=== PATIENT | male | born 1995 | race African-American/Black ===

== ENCOUNTER 2018-12-20 15:48 | Emergency (ER) | payer SELFPAY ==
[2018-12-20 15:57] VITALS: BP 117/55
--- NOTE | 2018-12-20 16:40 | ED Physician Documentation ---
PD HPI SKIN - Stated complaint Stated Complaint: RT DE LEON R - Chief complaint Chief Complaint: General - History obtained from History obtained from: Patient - History of Present Illness Timing - onset: How many months ago (4) Timing - duration: Months (4) Timing - details: Gradual onset, Still present, Waxing and waning Location: RUE Quality / character: Itchy, Burning Associated symptoms: No: Fever, Myalgias, Joint pain, Headache, Facial swelling, Dyspnea, Abd pain, N/V/D, Urinary sx Contributing factors: Unknown Similar symptoms before: Has not had sx before Recently seen: Not recently seen - Additional information Additional information: 23-year-old male has developed a dry patch of skin on the dorsum of the right hand laterally over the ulnar surface and this is been persistent for about 4 months. He states that he will occasionally itching a little bit and burn at times but he is really not had that much in way of symptoms or. He does state that he got a little bit worse when he had a bad cold. He does have a sister who has a history of eczema. Review of Systems Constitutional: denies: Fever, Chills Eyes: denies: Decreased vision Ears: denies: Ear pain Nose: denies: Congestion Throat: denies: Sore throat Respiratory: denies: Cough GI: denies: Vomiting : denies: Dysuria Skin: reports: Rash Musculoskeletal: denies: Neck pain, Back pain, Extremity pain Neurologic: denies: Generalized weakness, Focal weakness, Numbness PD PAST MEDICAL HISTORY - Past Medical History Past Medical History: No - Past Surgical History Past Surgical History: No - Present Medications Home Medications: Ambulatory Orders Medication Instructions Recorded Confirmed Albuterol Sulf [Ventolin Hfa 1 - 2 puffs INH Q4HR PRN 12/20/18 12/20/18 Inhaler] Triamcinolone 0.1% Cream [Kenalog 1 applic TOP BID #15 gm 12/20/18 0.1% Cream] - Allergies Allergies/Adverse Reactions: Allergies Allergy/AdvReac Type Severity Reaction Status Date / Time No Known Drug Allergies Allergy Verified 12/20/18 15:57 - Social History Does the pt smoke?: No Smoking Status: Never smoker Does the pt drink ETOH?: Yes Does the pt have substance abuse?: No - Immunizations Immunizations are current?: Yes - POLST Patient has POLST: No PD ED PE NORMAL - Vitals Vital signs reviewed: Yes (normal ) - General General: Alert and oriented X 3, No acute distress, Well developed/nourished - HEENT HEENT: Atraumatic, PERRL, EOMI - Respiratory Respiratory: No respiratory distress - Derm Derm: Normal color, Warm and dry, Other (There is dry lichenified skin over the ulnar surface of the right dorsal hand. There are 2 other small patches of similar skin one on the dorsum of the right hand and one on the webspace of the left hand over the 2nd interspace. ) - Neuro Neuro: Alert and oriented X 3, welfare interviewer 2-12 intact, No motor deficit, No sensory deficit, Normal speech Eye Opening: Spontaneous Motor: Obeys Commands Verbal: Oriented GCS Score: 15 - Psych Psych: Normal mood, Normal affect Results - Vitals Vitals: Vital Signs - 24 hr 12/20/18 15:55 Temperature 37.5 C Heart Rate 75 Respiratory 18 Rate Blood Pressure 117/55 L O2 Saturation 100 Oxygen O2 Source Room air PD MEDICAL DECISION MAKING - ED course Complexity details: considered differential, d/w patient ED course: 23-year-old male with some eczema to his hand does not appear to be overly bothered by this I have offered treatment with topical steroid. Departure - Departure Disposition: 01 Home, Self Care Clinical Impression: Eczema Qualifiers: Eczema type: unspecified Qualified Code(s): L30.9 - Dermatitis, unspecified Condition: Stable Instructions: ED Dermatitis Atopic Eczema Follow-Up: [facility] [Provider Group] Prescriptions: Triamcinolone 0.1% Cream [Kenalog 0.1% Cream] 1 applic TOP BID #15 gm
== END 2018-12-20 16:52 | disposition home or self-care (01) ==
LOC: ED 15:48
DX: L30.9 Dermatitis, unspecified (principal)
CPT/HCPCS: 99283

== ENCOUNTER 2019-01-10 10:06 | Emergency (ER) | payer MEDICAID ==
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
[2019-01-10 12:39] VITALS: BP 114/65
== END 2019-01-10 12:50 | disposition home or self-care (01) ==
LOC: ED 10:06
DX: S02.2XXA Fracture of nasal bones, initial encounter for closed fracture (principal); S60.511A Abrasion of right hand, initial encounter; Y04.2XXA Assault by strike against or bumped into by another person, initial encounter; M54.2 Cervicalgia; L30.9 Dermatitis, unspecified
CPT/HCPCS: 70486; 72125; 99283

== ENCOUNTER 2021-03-03 22:15 | Emergency (ER) | payer SELFPAY ==
--- NOTE | 2021-03-03 22:29 | ED Physician Documentation ---
PD HPI URI - Stated complaint Stated Complaint: THROAT PX - Chief complaint Chief Complaint: Heent - History obtained from History obtained from: Patient - History of Present Illness Timing - onset: How many days ago Timing duration: Days (few) Timing details: Gradual onset, Still present (increased pain left lower molar radiating to throat and neck. Worsening.) Associated symptoms: Sore throat, Other (left lower dental pain with some gum swelling.). No: Fever, Chills, Nasal congestion, Swollen nodes, Dry cough Contributing factors: No: Sick contact, Travel Recently seen: Not recently seen (He had antibiotics left from prior dental infection, so started those today without improvement.) Review of Systems Constitutional: reports: Myalgias. denies: Fever, Chills Nose: denies: Rhinorrhea / runny nose, Congestion Throat: reports: Dental pain / toothache, Sore throat (just to left side.). denies: Oral lesions / sores, Swollen tonsils PD PAST MEDICAL HISTORY - Past Medical History Cardiovascular: None Respiratory: None Endocrine/Autoimmune: None - Past Surgical History Past Surgical History: No - Present Medications Home Medications: Ambulatory Orders Medication Instructions Recorded Confirmed Albuterol Sulf [Ventolin Hfa 1 - 2 puffs INH Q4HR PRN 12/20/03/03/21 Inhaler] HYDROcod/ACETAM 5/325 [[place] 5/325] 1 ea PO Q6H PRN #15 tablet 03/03/21 Naproxen Sodium [Naprelan] 375 mg PO BID PRN #20 tab 03/03/21 clindamycin HCL [Clindamycin HCl] 300 mg PO TID 03/03/21 03/03/21 - Allergies Allergies/Adverse Reactions: Allergies Allergy/AdvReac Type Severity Reaction Status Date / Time No Known Drug Allergies Allergy Verified 03/03/21 22:24 - Social History Does the pt smoke?: No Smoking Status: Never smoker Does the pt drink ETOH?: Yes Does the pt have substance abuse?: No - Immunizations Immunizations are current?: Yes - POLST Patient has POLST: No PD ED PE NORMAL - Vitals Vital signs reviewed: Yes - General General: Alert and oriented X 3, Well developed/nourished, Other (appears uncomfortable with swallowing and with mouth opening, refers to just left side. ) - HEENT HEENT: Pharynx benign (no noted swelling, redness nor exudate of the tonsils. No peritonsillar swelling. Left lower 3rd molar tender to percussion with some swelling posterior to it. No fluctuance of the gum, but tender/swelling.) Results - Vitals Vitals: Vital Signs - 24 hr 03/03/21 03/03/21 22:21 23:18 Temperature 37.1 C 36.3 C L Heart Rate 68 64 Respiratory 18 16 Rate Blood Pressure 146/94 H 138/90 H O2 Saturation 99 98 Oxygen O2 Source Room air - Labs Labs: Microbiology 03/03/21 22:25 Group A Strep Throat Culture - Preliminary Throat CULTURE IN PROGRESS. RESULTS TO FOLLOW. Laboratory Tests 03/03/21 22:25 Group A Strep Rapid Negative PD MEDICAL DECISION MAKING - ED course Complexity details: considered differential (the throat pain clinically seems to be referred from dental source without notable peritonsillar findings, nor submandibular swelling. Gum swelling c/w tissue impaction and infection. ), d/w patient Departure - Departure Disposition: 01 Home, Self Care Clinical Impression: Periapical abscess Condition: Stable Record reviewed to determine appropriate education?: Yes Prescriptions: Naproxen Sodium [Naprelan] 375 mg PO BID PRN #20 tab PRN Reason: Pain HYDROcod/ACETAM 5/325 [[place] 5/325] 1 ea PO Q6H PRN #15 tablet PRN Reason: Pain Comments: Your rapid strep test is negative for an the tonsil and peritonsillar area appears normal with just some slight redness. There is tenderness around the gum of that back tooth. I think the infection is mostly related to the base of the tooth causing some soft tissue swelling nearby. Continue with the current antibiotic you were prescribed. To that add naproxen anti-inflammatory twice daily for inflammation and pain. To that add Tylenol every 6 hours or hydrocodone if needed for worse pain. Follow-up with a dentist for more definitive care of the tooth. Discharge Date/Time: 03/03/21 23:20
[2021-03-03 22:36] LABS: RAPID STREP SCREEN Negative (Negative)
[2021-03-03] MEDS ORDERED: IBUPROFEN 600 MG TABLET PO STA (22:59)
[2021-03-03] MEDS ORDERED: HYDROcod/ACETAM 5/325 MG TABLET PO STA (22:59)
[2021-03-03 23:20] VITALS: BP 138/90
== END 2021-03-03 23:20 | disposition home or self-care (01) ==
LOC: ED 22:15
DX: K04.7 Periapical abscess without sinus (principal)
CPT/HCPCS: 87070; 87430; 99283; A9270

== ENCOUNTER 2021-11-29 19:32 | Emergency (ER) | payer SELFPAY ==
[2021-11-29 19:51] VITALS: BP 130/64
== END 2021-11-29 20:52 | disposition left against medical advice (07) ==
LOC: ED 19:32
DX: Z53.21 Procedure and treatment not carried out due to patient leaving prior to being seen by health care provider (principal)
CPT/HCPCS: 99281